=== PATIENT | female | born 1940 | race Two or more races ===

== ENCOUNTER 2025-05-17 23:01 | Emergency (ER) | payer OTHER ==
[~2025-05-17] VITALS: Ht 157.5 cm; Wt 93.0 kg
[2025-05-17] MEDS ORDERED: TOPROL XL100 M1 PO (23:18)
[2025-05-17] MEDS ORDERED: ELIQUIS5 MG PO (23:18)
[2025-05-17] MEDS ORDERED: PRILOSEC OTC20 MG PO (23:19)
[2025-05-17] MEDS ORDERED: PREDNISONE PO (23:19)
[2025-05-17] MEDS ORDERED: [UNRECOGNIZED DRUG - OTHER] PO (23:19)
[2025-05-18] MEDS ORDERED: 0.9 % SODIUM CHLORIDE 1,000 ML IV STA (00:22)
[2025-05-18] MEDS ORDERED: ACETAMINOPHEN 500 MG GEL..CAP PO STA (00:23)
[2025-05-18] MEDS ORDERED: OxyCODONE HCL 5 MG TABLET (ROXICODONE) PO STA (00:23)
[2025-05-18] MEDS ORDERED: CLINDAMYCIN PHOSPHATE 150 MG/ML (900mg) IV STA (00:24)
== END 2025-05-18 04:20 | disposition home or self-care (01) ==
LOC: ER 23:01
DX: I89.0 Lymphedema, not elsewhere classified (principal); I10 Essential (primary) hypertension; Z88.8 Allergy status to other drugs, medicaments and biological substances